=== PATIENT | male | born 1935 | race Caucasian/White ===

== ENCOUNTER 2020-12-25 14:57 | Outpatient (CLI) | payer MEDICARE, BC | END 2020-12-25 14:58 | disposition home or self-care (01) | LOC: BICRAD 14:57 | PROVIDERS: ATTEND Nurse Practitioner Family | DX: R06.02 Shortness of breath (principal); J90 Pleural effusion, not elsewhere classified; J81.1 Chronic pulmonary edema | CPT/HCPCS: 71046 ==

== ENCOUNTER 2020-12-28 11:30 | Day surgery (SDC) | payer MEDICARE, BC ==
[2020-12-28 13:09] LABS: Pleural Fluid, Amylase Less than 30 U/L (Not Available); Pleural Fluid, Glucose 122 mg/dL; Pleural Fluid, LDH 103 U/L (Not Available); Pleural Fluid, Protein 3.6 g/dL
[2020-12-28 14:31] LABS: RBC Count-Automated (BF) 228 /cu.mm; WBC/Nucleated-Auto (BF) 502 /cu.mm
[2020-12-28 14:39] LABS: Body Fluid Source Thoracentesis Fluid
[2020-12-28 14:40] LABS: BF Color Yellow; Clarity Cloudy/Turbid (Clear); Tube # EDTA
[2020-12-28 14:47] LABS: BF Segmented Neutrophils 14 %; Cell Count Non Hematic 25 %; Lymphocytes 61 %
== END 2020-12-28 12:30 | disposition home or self-care (01) ==
LOC: SDC 11:30
PROVIDERS: ATTEND Internal Medicine Critical Care Medicine
PROC: 0W9B3ZZ Drainage of Left Pleural Cavity, Percutaneous Approach (ICD-10-PCS; principal; 2020-12-28)
DX: J90 Pleural effusion, not elsewhere classified (principal); I48.91 Unspecified atrial fibrillation; I10 Essential (primary) hypertension; E78.9 Disorder of lipoprotein metabolism, unspecified; Z95.0 Presence of cardiac pacemaker
CPT/HCPCS: 32554; 82150; 82945; 83615; 83986; 84157; 85060; 87070; 87205; 89051; J1642

== ENCOUNTER 2021-01-18 13:44 | Outpatient (CLI) | payer MEDICARE, BC | END 2021-01-18 13:45 | disposition home or self-care (01) | LOC: RAD 13:44 | PROVIDERS: ATTEND Internal Medicine Critical Care Medicine | DX: R06.00 Dyspnea, unspecified (principal); J90 Pleural effusion, not elsewhere classified | CPT/HCPCS: 71046 ==

== ENCOUNTER 2021-02-26 10:35 | Outpatient (CLI) | payer MEDICARE, BC | END 2021-02-26 10:36 | disposition home or self-care (01) | LOC: RAD 10:35 | PROVIDERS: ATTEND Internal Medicine Critical Care Medicine | DX: R06.00 Dyspnea, unspecified (principal); J90 Pleural effusion, not elsewhere classified; J98.4 Other disorders of lung; Z98.890 Other specified postprocedural states | CPT/HCPCS: 71046 ==

== ENCOUNTER 2021-09-05 16:30 | Inpatient (IN) | payer MEDICARE, BC ==
[2021-09-05] MEDS ORDERED: hydrALAZINE 20 MG/ML VIAL SLOW IVP PRN (18:54)
[2021-09-05] MEDS ORDERED: Morphine 2 MG/ML VIAL SLOW IVP PRN (18:54)
[2021-09-05] MEDS ORDERED: Lorazepam 2 MG/ML VIAL SLOW IVP PRN (18:54)
[2021-09-05] MEDS ORDERED: Furosemide 20 MG/2 ML VIAL SLOW IVP SCH (19:00)
[2021-09-05 19:22] LABS: #Lymphocytes 0.4 thou/uL (1.20-3.40); #Monocytes 0.9 thou/uL (0.11-0.59); #Neutrophils 15.4 thou/uL (1.40-6.50); %Basophils 0.1 % (0.0-1.0); %Eosinophils 0.2 % (0.0-10.0); %Lymphocytes 2.1 % (21.0-51.0); %Monocytes 5.4 % (0.0-10.0); %Neutrophils 92.3 % (42.0-75.0); Hemoglobin 12.4 g/dL (14.0-18.0); Mean Corpuscular HGB CONC 32.5 g/dL (32.0-36.0); Mean Corpuscular Hemoglobin 31.5 pg (27.0-31.0); Mean Corpuscular Volume 97.2 fL (78.0-98.0); Mean Platelet Volume 7.7 fL (7.4-10.4); Platelet Count 117 thou/uL (130-400); RBC Distribution Width 14.6 % (11.5-14.5); Red Blood Cell (RBC) Count 3.93 mill/uL (4.70-6.10); White Blood Cell (WBC) Count 16.7 thou/uL (4.8-10.8)
[2021-09-05 19:40] LABS: Anion Gap 13 mmol/L (10-20); BUN (Urea Nitrogen) 19 mg/dL (8.4-25.7); Calc. Creatinine Clearance 0 mL/min (70-130); Calcium 8.7 mg/dL (7.8-10.44); Carbon Dioxide 25 mmol/L (23-31); Chloride 105 mmol/L (98-107); Estimated GFR 49; Glucose 152 mg/dL (83-110); Magnesium 2.3 mg/dL (1.6-2.6); Phosphorus 3.5 mg/dL (2.3-4.7); Potassium 4.7 mmol/L (3.5-5.1); Sodium 138 mmol/L (136-145)
[2021-09-05 19:45] LABS: Troponin I Less than 0.010 ng/mL (< 0.028)
[2021-09-05 19:48] LABS: INR-International Normal Ratio 1.1; PTT 35.8 sec (22.9-36.1); Prothrombin Time 14.7 sec (12.0-14.7)
[2021-09-05] MEDS ORDERED: Famotidine/PF 20 mg/2ml Vial SLOW IVP SCH (21:00)
[2021-09-05] MEDS: Acetaminophen 500 MG TAB PO SCH (21:37)
[2021-09-05] MEDS: Metoprolol Tartrate 50 MG TAB PO SCH (21:38)
[2021-09-05] MEDS: Tamsulosin HCl 0.4 MG CAP PO SCH (21:40)
[2021-09-05 21:46] VITALS: BMI 25.6
[2021-09-05] MEDS: Ondansetron PF 4 MG/2 ML Vial IVP PRN (21:50)
[2021-09-05] MEDS: Senokot S 8.6-50 MG TAB PO SCH (21:52)
[2021-09-06 00:23] LABS: SARS-CoV-2 NAA Rapid Test Not Detected (NotDetected)
[2021-09-06 00:34] LABS: Bilirubin Negative (Negative); Blood, Urine 2+ (Negative); Clarity Turbid (Clear); Glucose, Urine (Dipstick) Normal (Negative); Ketone, Urine Negative (Negative); Leukocyte 500 Leu/uL (Negative); Nitrite Negative (Negative); Protein, Urine (Dipstick) 10 mg/dL (Neg-Trace); Specific Gravity, Urine 1.013 (1.002-1.036); Squamous Epithelial None Seen HPF (0-3); Urobilinogen Normal mg/dL (Less than 2)
[2021-09-06 00:40] LABS: Bacteria/HPF 2+ HPF (None Seen)
[2021-09-06 00:41] LABS: Urine Culture Reflex Yes Yes
[2021-09-06] MEDS: Acetaminophen 500 MG TAB PO SCH ×5 (02:16→23:57)
[2021-09-06] MEDS: Levothyroxine Sodium 25 MCG TAB PO SCH (05:48)
[2021-09-06] MEDS ORDERED: Lidocaine 2% 20 ml MDV SC SCH ×2 (07:15)
[2021-09-06 08:34] LABS: #Eosinphils 0.3 thou/uL (0.0-0.7); #Lymphocytes 0.7 thou/uL (1.20-3.40); #Monocytes 0.7 thou/uL (0.11-0.59); #Neutrophils 11.9 thou/uL (1.40-6.50); %Basophils 0.4 % (0.0-1.0); %Eosinophils 2.3 % (0.0-10.0); %Monocytes 4.9 % (0.0-10.0); %Neutrophils 87.4 % (42.0-75.0); Hemoglobin 11.6 g/dL (14.0-18.0); Mean Corpuscular Hemoglobin 31.3 pg (27.0-31.0); Mean Corpuscular Volume 97.6 fL (78.0-98.0); Mean Platelet Volume 8.3 fL (7.4-10.4); Platelet Count 104 thou/uL (130-400); RBC Distribution Width 14.3 % (11.5-14.5); Red Blood Cell (RBC) Count 3.71 mill/uL (4.70-6.10); White Blood Cell (WBC) Count 13.6 thou/uL (4.8-10.8)
[2021-09-06 08:50] LABS: Anion Gap 11 mmol/L (10-20); BUN (Urea Nitrogen) 22 mg/dL (8.4-25.7); Calc. Creatinine Clearance 48 mL/min (70-130); Carbon Dioxide 27 mmol/L (23-31); Chloride 103 mmol/L (98-107); Potassium 4.4 mmol/L (3.5-5.1); Sodium 137 mmol/L (136-145)
[2021-09-06 08:51] LABS: Calcium 8.8 mg/dL (7.8-10.44); Estimated GFR 54; Glucose 119 mg/dL (83-110); Magnesium 2.3 mg/dL (1.6-2.6); Phosphorus 4.1 mg/dL (2.3-4.7)
[2021-09-06] MEDS ORDERED: Furosemide 40 MG TAB PO SCH (09:00)
[2021-09-06] MEDS: Metoprolol Tartrate 50 MG TAB PO SCH ×2 (10:01→21:10)
[2021-09-06] MEDS: Atorvastatin Calcium 40 MG TAB PO SCH (10:02)
[2021-09-06] MEDS: cefTRIAXone\\ROCEPHIN 2 GM in Sodium Chloride 0.9% 100 ML IVPB SCH (10:02)
[2021-09-06] MEDS: Pregabalin 25 MG CAP PO SCH ×2 (10:03→21:09)
[2021-09-06] MEDS: Polyethylene Glycol 3350 17 GM Packet PO SCH (10:04)
[2021-09-06] MEDS: Saccharomyces boulardii 250 MG CAP PO SCH (10:04)
[2021-09-06] MEDS: Senokot S 8.6-50 MG TAB PO SCH ×2 (10:04→21:09)
[2021-09-06] MEDS: traMADol HCl 50 MG TAB PO SCH ×2 (11:24→17:45)
[2021-09-06] MEDS: Ondansetron PF 4 MG/2 ML Vial IVP PRN (12:37)
[2021-09-06] MEDS: Morphine 2 MG/ML VIAL SLOW IVP PRN ×2 (13:23→14:08)
[2021-09-06] MEDS ORDERED: Ketorolac Tromethamine 30 MG/ML VIAL IVP SCH (14:00)
[2021-09-06] MEDS ORDERED: Ketorolac Tromethamine 30 MG/ML VIAL ONE (14:09)
[2021-09-06] MEDS: Tamsulosin HCl 0.4 MG CAP PO SCH (21:09)
[2021-09-07] MEDS: traMADol HCl 50 MG TAB PO SCH (01:12)
[2021-09-07 05:55] LABS: #Eosinphils 0.5 thou/uL (0.0-0.7); #Lymphocytes 0.7 thou/uL (1.20-3.40); #Monocytes 0.7 thou/uL (0.11-0.59); #Neutrophils 9.8 thou/uL (1.40-6.50); %Basophils 0.3 % (0.0-1.0); %Eosinophils 4.1 % (0.0-10.0); %Monocytes 5.6 % (0.0-10.0); %Neutrophils 84.1 % (42.0-75.0); Mean Corpuscular HGB CONC 31.9 g/dL (32.0-36.0); Mean Corpuscular Hemoglobin 31.2 pg (27.0-31.0); Mean Corpuscular Volume 98.1 fL (78.0-98.0); Platelet Count 94 thou/uL (130-400); RBC Distribution Width 14.5 % (11.5-14.5); Red Blood Cell (RBC) Count 3.51 mill/uL (4.70-6.10); White Blood Cell (WBC) Count 11.6 thou/uL (4.8-10.8)
[2021-09-07 06:07] LABS: Anion Gap 13 mmol/L (10-20); BUN (Urea Nitrogen) 29 mg/dL (8.4-25.7); Calc. Creatinine Clearance 45 mL/min (70-130); Carbon Dioxide 26 mmol/L (23-31); Chloride 101 mmol/L (98-107); Potassium 4.3 mmol/L (3.5-5.1); Sodium 136 mmol/L (136-145)
[2021-09-07 06:08] LABS: Calcium 8.5 mg/dL (7.8-10.44); Estimated GFR 50; Glucose 134 mg/dL (83-110); Magnesium 2.4 mg/dL (1.6-2.6); Phosphorus 3.9 mg/dL (2.3-4.7)
[2021-09-07] MEDS: Acetaminophen 500 MG TAB PO SCH ×4 (06:56→23:14)
[2021-09-07] MEDS: Levothyroxine Sodium 25 MCG TAB PO SCH (06:56)
[2021-09-07] MEDS: cefTRIAXone\\ROCEPHIN 2 GM in Sodium Chloride 0.9% 100 ML IVPB SCH (09:29)
[2021-09-07] MEDS: Aspirin 81 mg Enteric Coated Tablet PO SCH (09:30)
[2021-09-07] MEDS: Furosemide 40 MG TAB PO SCH (09:31)
[2021-09-07] MEDS: Metoprolol Tartrate 50 MG TAB PO SCH ×2 (09:31→19:50)
[2021-09-07] MEDS: Atorvastatin Calcium 40 MG TAB PO SCH (09:31)
[2021-09-07] MEDS: Saccharomyces boulardii 250 MG CAP PO SCH (09:32)
[2021-09-07] MEDS: Senokot S 8.6-50 MG TAB PO SCH ×2 (09:32→19:56)
[2021-09-07] MEDS: Polyethylene Glycol 3350 17 GM Packet PO SCH (09:32)
[2021-09-07] MEDS: Pregabalin 25 MG CAP PO SCH ×2 (09:32→19:53)
[2021-09-07] MEDS: Tamsulosin HCl 0.4 MG CAP PO SCH (19:53)
[2021-09-08] MEDS: Acetaminophen 500 MG TAB PO SCH (05:21)
[2021-09-08] MEDS: Levothyroxine Sodium 25 MCG TAB PO SCH (05:22)
[2021-09-08 06:31] LABS: Anion Gap 12 mmol/L (10-20); BUN (Urea Nitrogen) 30 mg/dL (8.4-25.7); Calc. Creatinine Clearance 53 mL/min (70-130); Calcium 8.4 mg/dL (7.8-10.44); Carbon Dioxide 30 mmol/L (23-31); Chloride 98 mmol/L (98-107); Estimated GFR 62; Glucose 116 mg/dL (83-110); Magnesium 2.3 mg/dL (1.6-2.6); Phosphorus 3.7 mg/dL (2.3-4.7); Potassium 4.3 mmol/L (3.5-5.1); Sodium 136 mmol/L (136-145)
[2021-09-08] MEDS: Acetaminophen/Codeine 30-300mg Tablet PO PRN ×2 (09:45→18:08)
[2021-09-08] MEDS: Atorvastatin Calcium 40 MG TAB PO SCH (09:46)
[2021-09-08] MEDS: Senokot S 8.6-50 MG TAB PO SCH ×2 (09:46→20:30)
[2021-09-08] MEDS: Metoprolol Tartrate 50 MG TAB PO SCH ×2 (09:47→20:31)
[2021-09-08] MEDS: Aspirin 81 mg Enteric Coated Tablet PO SCH (09:47)
[2021-09-08] MEDS: Pregabalin 25 MG CAP PO SCH ×2 (09:47→20:30)
[2021-09-08] MEDS: Furosemide 40 MG TAB PO SCH (09:47)
[2021-09-08] MEDS: cefTRIAXone\\ROCEPHIN 2 GM in Sodium Chloride 0.9% 100 ML IVPB SCH (09:48)
[2021-09-08] MEDS: Polyethylene Glycol 3350 17 GM Packet PO SCH (09:48)
[2021-09-08] MEDS: Saccharomyces boulardii 250 MG CAP PO SCH (09:48)
[2021-09-08] MEDS: Acetaminophen 325 MG TAB PO SCH ×3 (12:26→22:32)
[2021-09-08] MEDS: Tamsulosin HCl 0.4 MG CAP PO SCH (20:30)
[2021-09-09] MEDS: Acetaminophen 325 MG TAB PO SCH ×4 (05:59→23:47)
[2021-09-09] MEDS: Levothyroxine Sodium 25 MCG TAB PO SCH (06:00)
[2021-09-09] MEDS: Atorvastatin Calcium 40 MG TAB PO SCH (08:36)
[2021-09-09] MEDS: Polyethylene Glycol 3350 17 GM Packet PO SCH (08:36)
[2021-09-09] MEDS: Furosemide 40 MG TAB PO SCH (08:37)
[2021-09-09] MEDS: Senokot S 8.6-50 MG TAB PO SCH ×2 (08:37→20:03)
[2021-09-09] MEDS: Metoprolol Tartrate 50 MG TAB PO SCH ×2 (08:37→20:03)
[2021-09-09] MEDS: Saccharomyces boulardii 250 MG CAP PO SCH (08:38)
[2021-09-09] MEDS: cefTRIAXone\\ROCEPHIN 2 GM in Sodium Chloride 0.9% 100 ML IVPB SCH (08:38)
[2021-09-09] MEDS: Pregabalin 25 MG CAP PO SCH ×2 (08:45→20:02)
[2021-09-09] MEDS: Acetaminophen/Codeine 30-300mg Tablet PO PRN ×2 (08:47→23:45)
[2021-09-09] MEDS: Aspirin 81 mg Enteric Coated Tablet PO SCH (09:52)
[2021-09-09 11:53] LABS: #Eosinphils 0.3 thou/uL (0.0-0.7); #Lymphocytes 0.7 thou/uL (1.20-3.40); #Monocytes 0.9 thou/uL (0.11-0.59); %Basophils 0.3 % (0.0-1.0); %Eosinophils 3.5 % (0.0-10.0); %Lymphocytes 7.2 % (21.0-51.0); %Monocytes 9.1 % (0.0-10.0); Hemoglobin 10.4 g/dL (14.0-18.0); Mean Corpuscular HGB CONC 31.6 g/dL (32.0-36.0); Mean Corpuscular Hemoglobin 30.9 pg (27.0-31.0); Mean Corpuscular Volume 97.8 fL (78.0-98.0); Mean Platelet Volume 7.9 fL (7.4-10.4); Platelet Count 117 thou/uL (130-400); RBC Distribution Width 14.5 % (11.5-14.5); Red Blood Cell (RBC) Count 3.36 mill/uL (4.70-6.10); White Blood Cell (WBC) Count 9.9 thou/uL (4.8-10.8)
[2021-09-09 11:59] LABS: Anion Gap 14 mmol/L (10-20); BUN (Urea Nitrogen) 24 mg/dL (8.4-25.7); Calc. Creatinine Clearance 63 mL/min (70-130); Calcium 8.4 mg/dL (7.8-10.44); Carbon Dioxide 28 mmol/L (23-31); Chloride 100 mmol/L (98-107); Estimated GFR 75; Glucose 123 mg/dL (83-110); Sodium 137 mmol/L (136-145)
[2021-09-09 12:03] LABS: INR-International Normal Ratio 1.1; Prothrombin Time 14.3 sec (12.0-14.7)
[2021-09-09 12:04] LABS: PTT 39.1 sec (22.9-36.1)
[2021-09-09] MEDS ORDERED: Piperacillin/Tazobactam 3.375 GM in Sodium Chloride 0.9% 100 ML IVPB SCH (14:15)
[2021-09-09] MEDS: Piperacillin/Tazobactam 3.375 GM in Sodium Chloride 0.9% 100 ML IVPB SCH (18:10)
[2021-09-09] MEDS: Tamsulosin HCl 0.4 MG CAP PO SCH (20:03)
[2021-09-10] MEDS: Piperacillin/Tazobactam 3.375 GM in Sodium Chloride 0.9% 100 ML IVPB SCH ×4 (02:32→21:43)
[2021-09-10] MEDS: Levothyroxine Sodium 25 MCG TAB PO SCH (05:21)
[2021-09-10] MEDS: Acetaminophen 325 MG TAB PO SCH ×3 (05:21→17:38)
[2021-09-10] MEDS ORDERED: Thrombin 5000 UNITS/5 ML VIAL ONE (06:52)
[2021-09-10] MEDS ORDERED: Albumin 5% 500 ML ONE (07:19)
[2021-09-10] MEDS ORDERED: Ketamine 50 MG/ML (10ML VIAL) ONE (07:19)
[2021-09-10] MEDS ORDERED: fentaNYL Citrate/PF 100 MCG/2 ML SYRINGE ONE ×2 (07:19→10:32)
[2021-09-10] MEDS ORDERED: CEFAZOLIN 2 GM VIAL ONE (07:27)
[2021-09-10] MEDS ORDERED: Dexamethasone 20 MG/5 ML VIAL ONE (07:33)
[2021-09-10] MEDS ORDERED: Phenylephrine 10 MG/ML VIAL ONE (07:33)
[2021-09-10] MEDS ORDERED: Ondansetron PF 4 MG/2 ML Vial ONE (07:33)
[2021-09-10] MEDS ORDERED: Lidocaine 1% PF 5 ML VIAL ONE (07:33)
[2021-09-10] MEDS ORDERED: Rocuronium Bromide 10 MG/ML (10ML VIAL) ONE (07:33)
[2021-09-10] MEDS ORDERED: PROPOFOL 200 MG/20 ML VIAL ONE (07:33)
[2021-09-10] MEDS ORDERED: Sodium Chloride 0.9% 100 ML ONE (07:41)
[2021-09-10] MEDS ORDERED: SUGAMMADEX SODIUM 200 MG/2 ML VIAL ONE (11:24)
[2021-09-10 11:37] LABS: Hemoglobin 10.2 g/dL (14.0-18.0)
[2021-09-10] MEDS ORDERED: Acetaminophen/Codeine 30-300mg Tablet PO PRN (11:51)
[2021-09-10] MEDS ORDERED: HYDROcodone/Acetaminophen 10/325 mg Tablet PO PRN (11:51)
[2021-09-10] MEDS ORDERED: HYDROcodone/Acetaminophen 7.5/325 mg Tablet PO PRN (11:51)
[2021-09-10] MEDS ORDERED: diphenhydrAMINE 25 MG CAP PO PRN (11:51)
[2021-09-10] MEDS ORDERED: Bisacodyl 5 MG TAB PO PRN (11:57)
[2021-09-10] MEDS ORDERED: Promethazine HCl 25 MG/ML VIAL IM PRN (12:04)
[2021-09-10] MEDS ORDERED: Promethazine HCl 25 MG/ML VIAL IVPB PRN (12:04)
[2021-09-10] MEDS ORDERED: Ondansetron HCl/PF 4 MG/2 ML Vial IVP PRN (12:04)
[2021-09-10] MEDS ORDERED: Aspirin 81 mg Enteric Coated Tablet PO SCH (12:15)
[2021-09-10] MEDS ORDERED: Promethazine HCl 25 MG/ML VIAL ONE (12:37)
[2021-09-10] MEDS: Atorvastatin Calcium 40 MG TAB PO SCH (13:54)
[2021-09-10] MEDS: Furosemide 40 MG TAB PO SCH (13:55)
[2021-09-10] MEDS: Saccharomyces boulardii 250 MG CAP PO SCH (13:55)
[2021-09-10] MEDS: Polyethylene Glycol 3350 17 GM Packet PO SCH (13:55)
[2021-09-10] MEDS: Pregabalin 25 MG CAP PO SCH ×2 (13:55→21:47)
[2021-09-10] MEDS: Senokot S 8.6-50 MG TAB PO SCH ×2 (13:55→21:46)
[2021-09-10] MEDS ORDERED: CEFAZOLIN 2 GM in Sodium Chloride 0.9% 100 ML IVPB SCH (14:00)
[2021-09-10] MEDS: traMADol HCl 50 MG TAB PO PRN (14:08)
[2021-09-10] MEDS: Morphine 2 MG/ML VIAL SLOW IVP PRN (14:12)
[2021-09-10 14:30] LABS: Anion Gap 14 mmol/L (10-20); BUN (Urea Nitrogen) 31 mg/dL (8.4-25.7); Calc. Creatinine Clearance 61 mL/min (70-130); Calcium 8.6 mg/dL (7.8-10.44); Carbon Dioxide 27 mmol/L (23-31); Chloride 103 mmol/L (98-107); Estimated GFR 72; Glucose 140 mg/dL (83-110); Potassium 4.8 mmol/L (3.5-5.1); Sodium 139 mmol/L (136-145)
[2021-09-10] MEDS: Metoprolol Tartrate 50 MG TAB PO SCH ×2 (14:47→21:44)
[2021-09-10] MEDS: Sodium Chloride 0.9% 1,000 ML IV SCH (14:48)
[2021-09-10] MEDS: Aspirin 81 mg Enteric Coated Tablet PO SCH (14:49)
[2021-09-10] MEDS ORDERED: Ibuprofen 200 MG TAB PO SCH (15:15)
[2021-09-10] MEDS ORDERED: Furosemide 40 MG TAB PO SCH (16:00)
[2021-09-10] MEDS: Acetaminophen/Codeine 30-300mg Tablet PO SCH (17:35)
[2021-09-10] MEDS: Docusate 100 MG CAP PO SCH (21:43)
[2021-09-10] MEDS: Tamsulosin HCl 0.4 MG CAP PO SCH (21:47)
[2021-09-10] MEDS: Ibuprofen 200 MG TAB PO SCH (21:48)
[2021-09-11] MEDS: Acetaminophen/Codeine 30-300mg Tablet PO SCH ×4 (00:18→18:10)
[2021-09-11] MEDS: Acetaminophen 325 MG TAB PO SCH ×4 (00:19→18:13)
[2021-09-11] MEDS: Sodium Chloride 0.9% 1,000 ML IV SCH ×2 (01:30→15:19)
[2021-09-11] MEDS: tiZANidine HCl 4 MG TAB PO PRN ×2 (03:30→21:31)
[2021-09-11] MEDS: HYDROcodone/Acetaminophen 7.5/325 mg Tablet PO PRN ×2 (03:30→11:12)
[2021-09-11] MEDS: Morphine 2 MG/ML VIAL SLOW IVP PRN (03:31)
[2021-09-11] MEDS: Piperacillin/Tazobactam 3.375 GM in Sodium Chloride 0.9% 100 ML IVPB SCH ×3 (05:44→21:31)
[2021-09-11] MEDS: Levothyroxine Sodium 25 MCG TAB PO SCH (05:44)
[2021-09-11] MEDS: Ibuprofen 200 MG TAB PO SCH ×3 (05:45→21:32)
[2021-09-11 06:06] LABS: #Lymphocytes 0.6 thou/uL (1.20-3.40); #Monocytes 1.3 thou/uL (0.11-0.59); #Neutrophils 11.6 thou/uL (1.40-6.50); %Basophils 0.1 % (0.0-1.0); %Eosinophils 0.2 % (0.0-10.0); %Lymphocytes 4.2 % (21.0-51.0); %Monocytes 9.4 % (0.0-10.0); %Neutrophils 86.2 % (42.0-75.0); Hemoglobin 9.3 g/dL (14.0-18.0); Mean Corpuscular HGB CONC 31.6 g/dL (32.0-36.0); Mean Corpuscular Volume 98.1 fL (78.0-98.0); Mean Platelet Volume 7.8 fL (7.4-10.4); Platelet Count 129 thou/uL (130-400); RBC Distribution Width 14.4 % (11.5-14.5); Red Blood Cell (RBC) Count 2.99 mill/uL (4.70-6.10); White Blood Cell (WBC) Count 13.4 thou/uL (4.8-10.8)
[2021-09-11 06:37] LABS: Anion Gap 12 mmol/L (10-20); BUN (Urea Nitrogen) 35 mg/dL (8.4-25.7); Calc. Creatinine Clearance 56 mL/min (70-130); Carbon Dioxide 27 mmol/L (23-31); Chloride 101 mmol/L (98-107); Estimated GFR 65; Glucose 143 mg/dL (83-110); Magnesium 2.4 mg/dL (1.6-2.6); Phosphorus 4.3 mg/dL (2.3-4.7); Sodium 135 mmol/L (136-145)
[2021-09-11] MEDS: Pregabalin 25 MG CAP PO SCH ×2 (09:10→21:31)
[2021-09-11] MEDS: Docusate 100 MG CAP PO SCH ×2 (09:11→21:30)
[2021-09-11] MEDS: Metoprolol Tartrate 50 MG TAB PO SCH ×2 (09:11→21:30)
[2021-09-11] MEDS: Saccharomyces boulardii 250 MG CAP PO SCH (09:11)
[2021-09-11] MEDS: Polyethylene Glycol 3350 17 GM Packet PO SCH (09:11)
[2021-09-11] MEDS: Aspirin 81 mg Enteric Coated Tablet PO SCH (09:12)
[2021-09-11] MEDS: Senokot S 8.6-50 MG TAB PO SCH (09:12)
[2021-09-11] MEDS: Atorvastatin Calcium 40 MG TAB PO SCH (09:12)
[2021-09-11] MEDS: Furosemide 40 MG TAB PO SCH (09:12)
[2021-09-11] MEDS: traMADol HCl 50 MG TAB PO PRN (14:06)
[2021-09-11] MEDS: Tamsulosin HCl 0.4 MG CAP PO SCH (21:31)
[2021-09-12] MEDS: Acetaminophen/Codeine 30-300mg Tablet PO SCH ×4 (00:57→18:07)
[2021-09-12] MEDS: Acetaminophen 325 MG TAB PO SCH ×5 (00:57→23:58)
[2021-09-12 05:34] LABS: #Eosinphils 0.3 thou/uL (0.0-0.7); #Lymphocytes 0.9 thou/uL (1.20-3.40); #Monocytes 1.5 thou/uL (0.11-0.59); #Neutrophils 10.5 thou/uL (1.40-6.50); %Basophils 0.2 % (0.0-1.0); %Eosinophils 2.2 % (0.0-10.0); %Monocytes 11.4 % (0.0-10.0); %Neutrophils 79.1 % (42.0-75.0); Hemoglobin 9.2 g/dL (14.0-18.0); Mean Corpuscular HGB CONC 32.9 g/dL (32.0-36.0); Mean Corpuscular Hemoglobin 31.7 pg (27.0-31.0); Mean Corpuscular Volume 96.3 fL (78.0-98.0); Mean Platelet Volume 8.3 fL (7.4-10.4); Platelet Count 125 thou/uL (130-400); RBC Distribution Width 14.3 % (11.5-14.5); Red Blood Cell (RBC) Count 2.89 mill/uL (4.70-6.10); White Blood Cell (WBC) Count 13.3 thou/uL (4.8-10.8)
[2021-09-12 05:50] LABS: Anion Gap 13 mmol/L (10-20); BUN (Urea Nitrogen) 38 mg/dL (8.4-25.7); Calc. Creatinine Clearance 52 mL/min (70-130); Calcium 8.2 mg/dL (7.8-10.44); Carbon Dioxide 26 mmol/L (23-31); Chloride 101 mmol/L (98-107); Estimated GFR 59; Glucose 125 mg/dL (83-110); Magnesium 2.5 mg/dL (1.6-2.6); Phosphorus 3.8 mg/dL (2.3-4.7); Potassium 4.6 mmol/L (3.5-5.1); Sodium 135 mmol/L (136-145)
[2021-09-12] MEDS: Piperacillin/Tazobactam 3.375 GM in Sodium Chloride 0.9% 100 ML IVPB SCH ×3 (05:54→21:42)
[2021-09-12] MEDS: Ibuprofen 200 MG TAB PO SCH ×3 (05:55→21:35)
[2021-09-12] MEDS: Levothyroxine Sodium 25 MCG TAB PO SCH (05:56)
[2021-09-12] MEDS: Sodium Chloride 0.9% 1,000 ML IV SCH ×2 (05:56→18:17)
[2021-09-12] MEDS: Saccharomyces boulardii 250 MG CAP PO SCH (09:00)
[2021-09-12] MEDS: Pregabalin 25 MG CAP PO SCH ×2 (09:00→21:35)
[2021-09-12] MEDS: Furosemide 40 MG TAB PO SCH (09:01)
[2021-09-12] MEDS: Atorvastatin Calcium 40 MG TAB PO SCH (09:01)
[2021-09-12] MEDS: Docusate 100 MG CAP PO SCH ×2 (09:01→21:34)
[2021-09-12] MEDS: Aspirin 81 mg Enteric Coated Tablet PO SCH (09:01)
[2021-09-12] MEDS: Polyethylene Glycol 3350 17 GM Packet PO SCH (09:02)
[2021-09-12] MEDS: HYDROcodone/Acetaminophen 7.5/325 mg Tablet PO PRN (09:02)
[2021-09-12] MEDS: Metoprolol Tartrate 50 MG TAB PO SCH ×2 (09:31→21:35)
[2021-09-12] MEDS: Tamsulosin HCl 0.4 MG CAP PO SCH (21:35)
[2021-09-13] MEDS: Acetaminophen/Codeine 30-300mg Tablet PO SCH ×4 (00:51→17:33)
[2021-09-13] MEDS: Acetaminophen 325 MG TAB PO SCH ×2 (05:01→11:51)
[2021-09-13] MEDS: Sodium Chloride 0.9% 1,000 ML IV SCH (05:02)
[2021-09-13] MEDS: Piperacillin/Tazobactam 3.375 GM in Sodium Chloride 0.9% 100 ML IVPB SCH ×3 (05:03→21:30)
[2021-09-13] MEDS: Levothyroxine Sodium 25 MCG TAB PO SCH (05:07)
[2021-09-13] MEDS: Ibuprofen 200 MG TAB PO SCH (05:07)
[2021-09-13] MEDS ORDERED: Metolazone 2.5 MG TAB PO SCH (08:30)
[2021-09-13] MEDS ORDERED: Furosemide 20 MG/2 ML VIAL SLOW IVP SCH (08:45)
[2021-09-13] MEDS ORDERED: Ibuprofen 200 MG TAB PO PRN (09:00)
[2021-09-13] MEDS: Aspirin 81 mg Enteric Coated Tablet PO SCH (09:15)
[2021-09-13] MEDS: Saccharomyces boulardii 250 MG CAP PO SCH (09:15)
[2021-09-13] MEDS: Furosemide 40 MG TAB PO SCH (09:15)
[2021-09-13] MEDS: Pregabalin 25 MG CAP PO SCH ×2 (09:16→21:31)
[2021-09-13] MEDS: Atorvastatin Calcium 40 MG TAB PO SCH (09:16)
[2021-09-13] MEDS: Metoprolol Tartrate 50 MG TAB PO SCH ×2 (09:16→21:30)
[2021-09-13] MEDS: Polyethylene Glycol 3350 17 GM Packet PO SCH (09:41)
[2021-09-13] MEDS: Docusate 100 MG CAP PO SCH ×2 (09:42→21:32)
[2021-09-13] MEDS: traMADol HCl 50 MG TAB PO PRN (16:07)
[2021-09-13] MEDS ORDERED: Tamsulosin HCl 0.4 MG CAP PO SCH (21:00)
[2021-09-13] MEDS ORDERED: Enoxaparin Sodium 40 MG/0.4 ML SYRINGE SC SCH (21:00)
[2021-09-14] MEDS: Acetaminophen/Codeine 30-300mg Tablet PO SCH ×3 (00:13→12:00)
[2021-09-14] MEDS: Piperacillin/Tazobactam 3.375 GM in Sodium Chloride 0.9% 100 ML IVPB SCH ×2 (05:57→15:43)
[2021-09-14] MEDS: Levothyroxine Sodium 25 MCG TAB PO SCH (06:09)
[2021-09-14] MEDS ORDERED: Aspirin 81 mg Enteric Coated Tablet PO SCH (09:00)
[2021-09-14] MEDS ORDERED: Ezetimibe 10 MG TAB PO SCH (09:00)
[2021-09-14] MEDS ORDERED: Potassium Chloride 10 MEQ TAB PO SCH (09:00)
[2021-09-14] MEDS: Polyethylene Glycol 3350 17 GM Packet PO SCH (09:37)
[2021-09-14] MEDS: Docusate 100 MG CAP PO SCH (09:38)
[2021-09-14] MEDS: Atorvastatin Calcium 40 MG TAB PO SCH (09:41)
[2021-09-14] MEDS: Furosemide 40 MG TAB PO SCH (09:41)
[2021-09-14] MEDS: Saccharomyces boulardii 250 MG CAP PO SCH (09:42)
[2021-09-14] MEDS: Pregabalin 25 MG CAP PO SCH (09:54)
[2021-09-14] MEDS: Metoprolol Tartrate 50 MG TAB PO SCH (09:55)
[2021-09-14 16:59] VITALS: BP 150/62; TEMP 98.3
== END 2021-09-14 16:35 | DRG 460 ==
LOC: ERS 16:30 → OBSVTOIN 19:01 → SJJU 19:01 → INTOOBSV 19:01
PROVIDERS: ADMIT Surgery; ATTEND Surgery
PROC: 0W9B30Z Drainage of Left Pleural Cavity with Drainage Device, Percutaneous Approach (ICD-10-PCS; 2021-09-06)
PROC: 5A09357 Assistance with Respiratory Ventilation, Less than 24 Consecutive Hours, Continuous Positive Airway Pressure (ICD-10-PCS; 2021-09-06)
PROC: 5A09357 Assistance with Respiratory Ventilation, Less than 24 Consecutive Hours, Continuous Positive Airway Pressure (ICD-10-PCS; 2021-09-08)
PROC: 0RG6071 Fusion of Thoracic Vertebral Joint with Autologous Tissue Substitute, Posterior Approach, Posterior Column, Open Approach (ICD-10-PCS; principal; 2021-09-10)
PROC: 0PS404Z Reposition Thoracic Vertebra with Internal Fixation Device, Open Approach (ICD-10-PCS; 2021-09-10)
PROC: 0QS004Z Reposition Lumbar Vertebra with Internal Fixation Device, Open Approach (ICD-10-PCS; 2021-09-10)
PROC: 0RGA071 Fusion of Thoracolumbar Vertebral Joint with Autologous Tissue Substitute, Posterior Approach, Posterior Column, Open Approach (ICD-10-PCS; 2021-09-10)
PROC: 5A09357 Assistance with Respiratory Ventilation, Less than 24 Consecutive Hours, Continuous Positive Airway Pressure (ICD-10-PCS; 2021-09-11)
DX: S22.089A Unspecified fracture of T11-T12 vertebra, initial encounter for closed fracture (principal); N17.9 Acute kidney failure, unspecified; I13.0 Hypertensive heart and chronic kidney disease with heart failure and stage 1 through stage 4 chronic kidney disease, or unspecified chronic kidney disease; N39.0 Urinary tract infection, site not specified; J91.8 Pleural effusion in other conditions classified elsewhere; Z20.822 Contact with and (suspected) exposure to COVID-19; R09.02 Hypoxemia; E78.5 Hyperlipidemia, unspecified; I48.91 Unspecified atrial fibrillation; I25.10 Atherosclerotic heart disease of native coronary artery without angina pectoris; E03.9 Hypothyroidism, unspecified; W10.9XXA Fall (on) (from) unspecified stairs and steps, initial encounter; I50.9 Heart failure, unspecified; G47.33 Obstructive sleep apnea (adult) (pediatric); M46.94 Unspecified inflammatory spondylopathy, thoracic region; F41.9 Anxiety disorder, unspecified; G62.9 Polyneuropathy, unspecified; M40.204 Unspecified kyphosis, thoracic region; N40.1 Benign prostatic hyperplasia with lower urinary tract symptoms; E11.22 Type 2 diabetes mellitus with diabetic chronic kidney disease; N18.9 Chronic kidney disease, unspecified; R33.8 Other retention of urine; M81.0 Age-related osteoporosis without current pathological fracture; Y92.009 Unspecified place in unspecified non-institutional (private) residence as the place of occurrence of the external cause; Z95.0 Presence of cardiac pacemaker; Z95.1 Presence of aortocoronary bypass graft; Z79.82 Long term (current) use of aspirin; Z79.899 Other long term (current) drug therapy; Z79.890 Hormone replacement therapy; Z90.49 Acquired absence of other specified parts of digestive tract; Z90.89 Acquired absence of other organs; Z82.49 Family history of ischemic heart disease and other diseases of the circulatory system; Z88.2 Allergy status to sulfonamides; Z88.1 Allergy status to other antibiotic agents; Z87.891 Personal history of nicotine dependence; Z98.49 Cataract extraction status, unspecified eye
CPT/HCPCS: 36415; 71045; 76000; 80048; 81001; 82533; 83735; 83880; 84100; 84484; 85014; 85018; 85025; 85610; 85730; 86850; 86900; 86901; 87077; 87086; 93970; 94640; 94660; C1713; C1768; C1776; G0390; J0690; J0696; J1100; J1650; J1885; J1940; J2270; J2370; J2405; J2543; J2550; J2704; J3370; J3490; J7050; J7620; P9045; U0002; U0003; U0005

== ENCOUNTER 2021-10-01 11:23 | Outpatient (CLI) | payer MEDICARE, BC | END 2021-10-01 11:24 | disposition home or self-care (01) | LOC: TBSIIMAG 11:23 | PROVIDERS: ATTEND Surgery | DX: S22.009D Unspecified fracture of unspecified thoracic vertebra, subsequent encounter for fracture with routine healing (principal); Z98.890 Other specified postprocedural states | CPT/HCPCS: 72072 ==